=== PATIENT | female | born 1980 ===

== ENCOUNTER 2017-07-27 11:04 | Emergency (ER) | payer BC, OTHER ==
[2017-07-27 11:12] VITALS: RESP 18; TEMP 98; O2SAT 99; BMI 22.6
--- NOTE | 2017-07-27 11:29 | ED PDOC ---
Arrival/HPI - General Chief Complaint: Abdominal Pain Time Seen by Provider: 07/27/17 11:14 Historian: Patient - History of Present Illness Narrative History of Present Illness (Text): 07/27/17 11:15 A 37 year old female, whose past medical history includes nephrolithiasis, presents to the emergency department for left sided back pain and swelling, which began 5 days ago. The patient states the pain is non-radiating and is intermittent, she reports the pain worsened yesterday and is constant now, she also notes increased urine frequency. She admits this pain is similar to her previous kidney stones. She denies any abdominal pain, nausea, diarrhea, vomiting, cough, bloody urine, or any other complaints at this time. LMP: "About 3 weeks ago." Time/Duration: < week (x 5 days ) Symptom Onset: Gradual Symptom Course: Unchanged Activities at Onset: Light Context: Home, Work Associated Symptoms (Text): 07/27/17 11:40 Five day history of intermittent left-sided flank pain similar to previous kidney stones. She also complains of urinary frequency and urgency, but no hematuria. No nausea vomiting or diarrhea. She appears comfortable and in no distress. She is refusing pain medication at this time. Past Medical History - Provider Review Nursing Documentation Reviewed: Yes - Cardiac Hx Cardiac Disorders: No - Pulmonary Hx Respiratory Disorders: No - Neurological Hx Neurological Disorder: No - HEENT Hx HEENT Disorder: No - Renal Hx Renal Disorder: Yes Hx Kidney Stones: Yes - Endocrine/Metabolic Hx Endocrine Disorders: No - Hematological/Oncological Hx Blood Disorders: No - Integumentary Hx Dermatological Disorder: No - Musculoskeletal/Rheumatological Hx Musculoskeletal Disorders: No - Gastrointestinal Hx Gastrointestinal Disorders: No - Genitourinary/Gynecological Hx Genitourinary Disorders: No - Psychiatric Hx Psychophysiologic Disorder: No Hx Substance Use: No Family/Social History - Physician Review Nursing Documentation Reviewed: Yes Family/Social History: No Known Family HX Smoking Status: Never Smoked Hx Alcohol Use: No Hx Substance Use: No Allergies/Home Meds Allergies/Adverse Reactions: Allergies No Known Allergies Allergy (Verified 07/27/17 11:12) Review of Systems - Physician Review All systems were reviewed & negative as marked: Yes - Review of Systems Constitutional: absent: Fevers Respiratory: absent: Cough Cardiovascular: absent: Chest Pain, Palpitations Gastrointestinal: absent: Abdominal Pain, Diarrhea, Nausea, Vomiting Genitourinary Female: Frequency. absent: Hematuria, Vaginal Bleeding, Vaginal Discharge Musculoskeletal: Back Pain Physical Exam Vital Signs Reviewed: Yes Vital Signs Temp Pulse Resp BP Pulse Ox 07/27/17 12:42 88 18 134/60 99 07/27/17 11:08 98.0 F 101 H 18 146/91 H 99 Temperature: Afebrile Blood Pressure: Hypertensive Pulse: Regular Respiratory Rate: Normal Appearance: Positive for: Well-Appearing, Non-Toxic, Comfortable Pain Distress: None Mental Status: Positive for: Alert and Oriented X 3 - Systems Exam Head: Present: Atraumatic, Normocephalic Pupils: Present: PERRL Extroacular Muscles: Present: EOMI Conjunctiva: Present: Normal Mouth: Present: Moist Mucous Membranes Neck: Present: Normal Range of Motion Respiratory/Chest: Present: Clear to Auscultation, Good Air Exchange. No: Respiratory Distress, Accessory Muscle Use Cardiovascular: Present: Regular Rate and Rhythm, Normal S1, S2. No: Murmurs Abdomen: Present: Normal Bowel Sounds. No: Tenderness, Distention, Peritoneal Signs, Rebound, Guarding Back: Present: Normal Inspection. No: CVA Tenderness, Midline Tenderness, Paraspinal Tenderness Upper Extremity: Present: Normal Inspection. No: Cyanosis, Edema Lower Extremity: Present: Normal Inspection. No: Edema Neurological: Present: GCS=15, CN II-XII Intact, Speech Normal, Motor Func Grossly Intact Skin: Present: Warm, Dry, Normal Color. No: Rashes Psychiatric: Present: Alert, Oriented x 3, Normal Insight, Normal Concentration Medical Decision Making ED Course and Treatment: 07/27/17 11:20 Impression: A 37 year old female with left sided back pain. Differential Diagnosis included but are not limited to: Plan: -- Abd & Pelvis CT -- Labs -- test -- Urinalysis -- Reassess and disposition Progress Notes: - Lab Interpretations Lab Results: 07/27/17 11:20 07/27/17 11:20 Lab Results 07/27/17 11:33: Urine Color Yellow, Urine Appearance Clear, Urine pH 7.0, Ur Specific Kelly 1.010, Urine Protein Negative, Urine Glucose (UA) Negative, Urine Ketones Negative, Urine Blood Negative, Urine Nitrate Negative, Urine Bilirubin Negative, Urine Urobilinogen 0.2, Ur Leukocyte Esterase Negative 07/27/17 11:20: Sodium 140, Potassium 3.5 L, Chloride 101, Carbon Dioxide 27, Anion Gap 15, BUN 10, Creatinine 0.7, Est GFR ( Amer) > 60, Est GFR (Non- Af Amer) > 60, Random Glucose 107, Calcium 9.8, Total Bilirubin 0.6, AST 29, ALT 18, Alkaline Phosphatase 53, Total Protein 8.5 H, Albumin 4.7, Globulin 3.8 , Albumin/Globulin Ratio 1.2, Lipase 110 07/27/17 11:20: WBC 7.7, RBC 3.78, Hgb 13.0, Hct 37.9, MCV 100.3, MCH 34.4, MCHC 34.3, RDW 11.3 L, Plt Count 314, MPV 10.3, Gran % 71.2 H, Lymph % (Auto) 24.0, Whitfield % (Auto) 4.3, Eos % (Auto) 0.4 L, Baso % (Auto) 0.1, Gran # 5.45, Lymph # 1.8, Whitfield # 0.3, Eos # 0.0, Baso # 0.01 - RAD Interpretation Radiology Orders: 07/27/17 11:23 ABD & PELVIS W/O PO OR IV CONT [CT] Stat CT scan of the abdomen and pelvis is read by the radiologist shows a 3 mm left nephrolithiasis. No hydronephrosis. Skin Installer: Radiologist - Scribe Statement The provider has reviewed the documentation as recorded by the Shawn Link Provider Scribe Attestation: All medical record entries made by the Alinibe were at my direction and personally dictated by me. I have reviewed the chart and agree that the record accurately reflects my personal performance of the history, physical exam, medical decision making, and the department course for this patient. I have also personally directed, reviewed, and agree with the discharge instructions and disposition. Disposition/Present on Arrival - Present on Arrival Any Indicators Present on Arrival: No History of DVT/PE: No History of Uncontrolled Diabetes: No Urinary Catheter: No History of Decub. Ulcer: No History Surgical Site Infection Following: None - Disposition Have Diagnosis and Disposition been Completed?: Yes Diagnosis: Nephrolithiasis, Back pain Disposition: HOME/ ROUTINE Disposition Time: 12:46 Patient Plan: Discharge Condition: GOOD Discharge Instructions (ExitCare): Kidney Stones (ED), How to Strain Your Urine (ED) Additional Instructions: Follow-up with PMD and urologist. Follow-up in ER as needed. Prescriptions: Tramadol HCl [Ultram] 50 mg PO Q6 PRN #20 tab PRN Reason: Pain Ondansetron [Zofran Odt] 4 mg SL Q6 #20 odt Forms: [facility] (Welsh)
[2017-07-27 11:36] LABS: URINE BILIRUBIN NEGATIVE (NEGATIVE); URINE BLOOD NEGATIVE (NEGATIVE); URINE GLUCOSE (UA) NEGATIVE (NEGATIVE); URINE KETONE NEGATIVE (NEGATIVE); URINE LEUKOCYTE ESTERASE NEGATIVE Leu/uL (NEGATIVE); URINE PROTEIN NEGATIVE mg/dL (<30 mg/dL); URINE UROBILINOGEN 0.2 E.U./dL (<1 E.U./dL)
[2017-07-27 11:39] LABS: URINE APPEARANCE CLEAR (CLEAR); URINE COLOR YELLOW (YELLOW)
[2017-07-27 11:49] LABS: BASO # 0.01 K/mm3 (0.0-2.0); BASO % 0.1 % (0.0-3.0); EOS % 0.4 % (1.5-5.0); GRAN # 5.45 (1.4-6.5); GRAN % 71.2 % (50.0-68.0); HEMATOCRIT 37.9 % (36.0-48.0); LYMPH # 1.8 (1.2-3.4); MEAN CELL VOLUME 100.3 fl (80.0-105.0); MEAN CORPUSCULAR HEMOGLOBIN 34.4 pg (25.0-35.0); MEAN CORPUSCULAR HGB CONC 34.3 g/dl (31.0-37.0); MEAN PLATELET VOLUME 10.3 fl (7.0-11.0); MONO # 0.3 (0.1-0.6); MONO % 4.3 % (1.0-6.0); RED CELL DISTRIBUTION WIDTH 11.3 % (11.5-14.5); WHITE BLOOD COUNT 7.7 10^3/ul (4.5-11.0)
[2017-07-27 11:58] LABS: ALKALINE PHOSPHATASE 53 U/L (38-126); ALT/SGPT 18 U/L (7-56); AST/SGOT 29 U/L (14-36); BILIRUBIN,TOTAL 0.6 mg/dL (0.2-1.3); BLOOD UREA NITROGEN 10 mg/dL (7-21); CALCIUM 9.8 mg/dL (8.4-10.5); CARBON DIOXIDE 27 mmol/L (21-33); CHLORIDE 101 mmol/L (98-107); GFR AFRICAN-AMERICAN > 60; GLUCOSE,RANDOM 107 mg/dL (70-110); LIPASE 110 U/L (23-300); POTASSIUM 3.5 mmol/L (3.6-5.0); SODIUM 140 mmol/L (132-148); TOTAL PROTEIN 8.5 g/dL (5.8-8.3)
[2017-07-27 12:12] LABS: ALB/GLOB RATIO 1.2 (1.1-1.8)
--- NOTE | 2017-07-27 12:34 | CT ---
PROCEDURE: CT Abdomen and Pelvis without intravenous contrast HISTORY: left stone run COMPARISON: None. TECHNIQUE: Without contrast.. Contrast Dose: 0 Radiation dose: Total exam DLP = 309.47 mGy-cm. This CT exam was performed using one or more of the following dose reduction techniques: Automated exposure control, adjustment of the mA and/or kV according to patient size, and/or use of iterative reconstruction technique. FINDINGS: LOWER THORAX: Unremarkable. LIVER: Unremarkable. No gross lesion or ductal dilatation. GALLBLADDER AND BILE DUCTS: Unremarkable. PANCREAS: Unremarkable. No gross lesion or ductal dilatation. SPLEEN: Unremarkable. ADRENALS: Unremarkable. No mass. KIDNEYS AND URETERS: 3 mm nonobstructing left upper pole renal calculus. VASCULATURE: Unremarkable. No aortic aneurysm. BOWEL: Unremarkable. No obstruction. No gross mural thickening. APPENDIX: Unremarkable. Normal appendix. PERITONEUM: Unremarkable. No free fluid. No free air. LYMPH NODES: Unremarkable. No enlarged lymph nodes. BLADDER: Unremarkable. REPRODUCTIVE: Unremarkable uterus. Possible left ovarian cyst, 2.3 cm. BONES: No acute fracture. Very mild thoracolumbar levoscoliosis. OTHER FINDINGS: None. IMPRESSION: Nonobstructing 3 mm left renal calculus. No evidence of urinary tract obstruction. Possible 2.3 cm left ovarian cyst. Very mild thoracolumbar levoscoliosis.
[2017-07-27 12:43] VITALS: BP 134/60; PULSE 88
== END 2017-07-27 12:59 | disposition home or self-care (01) ==
LOC: ED 11:04
DX: N20.0 Calculus of kidney (principal); Z87.442 Personal history of urinary calculi; M54.9 Dorsalgia, unspecified